=== PATIENT | female | born 1995 | race Caucasian/White ===

== ENCOUNTER 2019-06-14 14:58 | Outpatient (CLI) | payer OTHER ==
[2016-08-04 05:17] VITALS: BP 100/53
[2019-06-14 16:26] LABS: MAGNESIUM 2.3 mIU/l (1.6-2.3); eGFR (Non-African) > 60
== END 2019-06-14 15:02 ==
LOC: LAB 14:58
PROVIDERS: ATTEND Nurse Practitioner Family
DX: E87.6 Hypokalemia (principal); R25.2 Cramp and spasm; R63.5 Abnormal weight gain
CPT/HCPCS: 36415; 80053; 83735; 84439; 84443; 84481

== ENCOUNTER 2019-09-19 06:34 | Emergency (ER) | payer OTHER ==
--- NOTE | 2019-09-19 06:59 | ED Physician Documentation ---
Sore Throat/Dental Pain - HISTORIAN Historian: patient - HPI Stated Complaint: "I think I have strep throat" Chief Complaint: Sore Throat Onset: days ago (1) Context: Possible Infection Associated Symptoms: chills, sore throat, moderate. denies: fever Further Comments: yes (She states her throat started to hurt about 2 am and she has had chills. No sick contacts) - ROS CONST: no problems CVS/RESP: none NEURO/PSYCH: none - PAST HX Past History: none Immunizations: UTD Allergies/Adverse Reactions: Allergies Allergy/AdvReac Type Severity Reaction Status Date / Time sulfamethoxazole AdvReac Hives Verified 09/19/19 06:57 [From Bactrim] trimethoprim [From Bactrim] AdvReac Hives Verified 09/19/19 06:57 Home Medications: Ambulatory Orders Medication Instructions Recorded NK 09/19/19 - SOCIAL HX Smoking History: non-smoker Alcohol Use: none Drug Use: none - FAMILY HX Family History: No - VITAL SIGNS Vital Signs: Vital Signs Temp Pulse Resp BP Pulse Ox 97.6 F 78 16 141/66 96 09/19/19 06:35 09/19/19 06:35 09/19/19 06:35 09/19/19 06:35 09/19/19 06:35 - REVIEWED ASSESSMENTS Nursing Assessment Reviewed: Yes Vitals Reviewed: Yes Sore throat Physical Exam - EXAM General Appearance: no acute distress, alert Head/Neck: head nml inspection Mouth/Throat: lips nml, gums nml, pharyngeal erythema Respiratory: no resp. distress CVS: reg. rate & rhythm, heart sounds nml Abdomen: soft Extremities: non-tender Skin: warm/dry Neuro/Psych: oriented x3 Discharge Clincal Impression: Strep sore throat Referrals: Claudia Damon NP [Primary Care Provider] - 2 Days Comments: 1. Amoxicillin 875 mg take 1 by mouth twice daily x 10 day 2. Increase fluids 3. OTC Meds as directed as needed for symptom management 4. Follow up with PCP in 2-4 days 5. Return to ER for any increased concerns Condition: Stable Disposition: 01 HOME, SELF-CARE Decision to Admit: NO Date of Decison to Admit: 09/19/19 Decision Time: 07:01
[2019-09-19 07:09] VITALS: BP 136/68
== END 2019-09-19 07:05 | disposition home or self-care (01) ==
LOC: ED 06:34
DX: J02.0 Streptococcal pharyngitis (principal)
CPT/HCPCS: 87880